=== PATIENT | male | born 1980 ===

== ENCOUNTER 2021-03-19 02:41 | Inpatient (IN) ==
[2021-03-19 03:29] LABS: Basophils % 0.8 %; Hematocrit 45.3 % (37.5-50.1); Immature Granulocytes % 2.1 % (0-4); Lymphocytes # 0.8 K/mcL (0.6-4.6); Lymphocytes % 20.3 %; Mean Corpuscular HGB Conc 33.1 g/dL (31.6-35.5); Mean Corpuscular Hemoglobin 29.4 pg (28.0-33.3); Mean Corpuscular Volume 88.6 fL (83.0-100.0); Mean Platelet Volume 10.9 fL (9.4-12.4); Monocytes # 0.3 K/mcL (0.0-1.3); Monocytes % 6.4 %; Neutrophils # 2.7 K/mcL (1.6-8.9); Platelet Count 155 K/mcL (140-400); Red Blood Count 5.11 M/mcL (4.19-5.50); Red Cell Distribution Width 12.2 % (11.5-14.5); Segmented Neutrophils % 70.4 %; White Blood Count 3.9 K/mcL (4.3-11.1)
[2021-03-19 03:37] LABS: INR 1.2; Prothrombin Time 13.6 Seconds (9.4-12.1)
[2021-03-19 03:39] LABS: Activated Partial Thrombo Time 30.2 Seconds (26.0-36.0)
[2021-03-19 03:47] LABS: BUN/Creatinine Ratio 11 (6-26); Blood Urea Nitrogen 8 mg/dL (6-20); Calcium 8.8 mg/dL (8.6-10.3); Carbon Dioxide 24 mEq/L (23-29); Chloride 92 mEq/L (98-107); Glucose 291 mg/dL (70-105); Osmolality,Calculated 275 (280-300); Sodium 128 mEq/L (136-145); Troponin I < 0.03 ng/mL (< 0.04); eGFR For African Americans > 60 (> 60); eGFR For Non-African Americans > 60 (> 60)
[2021-03-19] MEDS ORDERED: Isovue-370 500 ML BOTTLE IVP ONE (03:51)
[2021-03-19 04:00] LABS: Influenza A PCR Negative (Negative); Influenza B PCR Negative (Negative); Resp. Syncytial Virus PCR Negative (Negative)
[2021-03-19 04:09] LABS: SARS-CoV-2 by PCR (In House) Positive (Negative)
[2021-03-19] MEDS ORDERED: *HR* Promethazine 25 MG/ML VIAL IM PRN (04:59)
[2021-03-19] MEDS ORDERED: Naloxone 0.4 MG/ML INJ IVP PRN (04:59)
[2021-03-19] MEDS ORDERED: Melatonin 3 MG TABLET PO PRN (04:59)
[2021-03-19] MEDS ORDERED: *HR* OxyCODONE Immed Rel 5 MG TABLET PO PRN (04:59)
[2021-03-19] MEDS ORDERED: Acetaminophen 325 MG TABLET PO PRN (04:59)
[2021-03-19] MEDS ORDERED: Ondansetron 4 MG/2 ML VIAL IVP PRN (04:59)
[2021-03-19] MEDS ORDERED: *HR* Dextrose 50 % in Water (Syg) 50 ML SYRINGE IVP PRN (05:02)
[2021-03-19] MEDS ORDERED: Dextrose Gel 15 GM/37.5 ML TUBE PO PRN ×2 (05:02)
[2021-03-19] MEDS ORDERED: D5% in Water 1,000 ML IVC PRN (05:02)
[2021-03-19 05:55] LABS: Albumin/Globulin Ratio 1.1 (1.1-2.2); Bilirubin,Direct 0.1 mg/dL (0.0-0.2); Bilirubin,Indirect 0.3 mg/dL (0.0-1.0); Bilirubin,Total 0.4 mg/dL (0.3-1.0); Globulin 2.8 g/dL (2.4-3.5); Total Protein 5.8 g/dL (6.4-8.9)
[2021-03-19] MEDS ORDERED: Insulin LISPRO 300 UNITS/3 ML VIAL SUBQ SCH ×2 (06:00→11:30)
[2021-03-19] MEDS: *HR* Enoxaparin 40 MG/0.4 ML SYRINGE SQ SCH (08:34)
[2021-03-19] MEDS: cefTRIAXone 1,000 MG in 0.9 % Sodium Chloride Mini Bag 100 ML IVP SCH (09:40)
[2021-03-19] MEDS: Azithromycin 500 MG in 0.9 % Sodium Chloride 250 ML IVPB SCH (10:10)
[2021-03-19] MEDS ORDERED: Benzonatate 100 MG CAPSULE PO PRN (10:42)
[2021-03-19] MEDS: Insulin LISPRO 300 UNITS/3 ML VIAL SUBQ SCH ×3 (11:28→21:28)
[2021-03-19] MEDS ORDERED: Insulin DETEMIR 100 UNIT/ML X5UNITS SUBQ SCH (21:00)
[2021-03-19] MEDS: *HR* HYDROcodone/Acet 5/325 mg TABLET PO PRN (21:33)
[2021-03-20 03:10] LABS: Basophils % 0.8 %; Hematocrit 46.3 % (37.5-50.1); Hemoglobin 15.4 g/dL (12.9-16.9); Lymphocytes # 0.9 K/mcL (0.6-4.6); Lymphocytes % 24.7 %; Mean Corpuscular HGB Conc 33.3 g/dL (31.6-35.5); Mean Corpuscular Hemoglobin 29.8 pg (28.0-33.3); Mean Corpuscular Volume 89.6 fL (83.0-100.0); Mean Platelet Volume 11.1 fL (9.4-12.4); Monocytes # 0.4 K/mcL (0.0-1.3); Monocytes % 9.9 %; Neutrophils # 2.3 K/mcL (1.6-8.9); Platelet Count 185 K/mcL (140-400); Red Blood Count 5.17 M/mcL (4.19-5.50); Red Cell Distribution Width 12.2 % (11.5-14.5); Segmented Neutrophils % 61.6 %; White Blood Count 3.7 K/mcL (4.3-11.1)
[2021-03-20 03:18] LABS: INR 1.1; Prothrombin Time 12.3 Seconds (9.4-12.1)
[2021-03-20 03:53] LABS: Alanine Aminotransferase 25 Units/L (7-52); Albumin 3.5 g/dL (3.5-5.7); Albumin/Globulin Ratio 1.1 (1.1-2.2); Alkaline Phosphatase 86 Units/L (34-104); Aspartate Amino Transferase 27 Units/L (13-39); BUN/Creatinine Ratio 23 (6-26); Bilirubin,Total 0.4 mg/dL (0.3-1.0); Blood Urea Nitrogen 15 mg/dL (6-20); Calcium 9.4 mg/dL (8.6-10.3); Carbon Dioxide 19 mEq/L (23-29); Chloride 101 mEq/L (98-107); Globulin 3.2 g/dL (2.4-3.5); Glucose 283 mg/dL (70-105); Magnesium 1.9 mg/dL (1.6-2.6); Osmolality,Calculated 285 (280-300); Sodium 132 mEq/L (136-145); Total Protein 6.7 g/dL (6.4-8.9); eGFR For African Americans > 60 (> 60); eGFR For Non-African Americans > 60 (> 60)
[2021-03-20] MEDS: *HR* Enoxaparin 40 MG/0.4 ML SYRINGE SQ SCH ×2 (06:02→17:37)
[2021-03-20] MEDS: Insulin LISPRO 300 UNITS/3 ML VIAL SUBQ SCH ×6 (07:48→20:50)
[2021-03-20] MEDS: Dexamethasone Sodium Phos/PF 10 MG/ML VIAL IVP SCH (07:49)
[2021-03-20] MEDS: Azithromycin 500 MG in 0.9 % Sodium Chloride 250 ML IVPB SCH (07:50)
[2021-03-20] MEDS: cefTRIAXone 1,000 MG in 0.9 % Sodium Chloride Mini Bag 100 ML IVP SCH (09:01)
[2021-03-20] MEDS: *HR* HYDROcodone/Acet 5/325 mg TABLET PO PRN (09:09)
[2021-03-20] MEDS ORDERED: Insulin DETEMIR 100 UNIT/ML X5UNITS SUBQ SCH (21:00)
[2021-03-21] MEDS: *HR* Enoxaparin 40 MG/0.4 ML SYRINGE SQ SCH ×2 (06:06→17:00)
[2021-03-21 06:41] LABS: Hematocrit 47.4 % (37.5-50.1); Hemoglobin 15.3 g/dL (12.9-16.9); Mean Corpuscular HGB Conc 32.3 g/dL (31.6-35.5); Mean Corpuscular Hemoglobin 28.9 pg (28.0-33.3); Mean Corpuscular Volume 89.6 fL (83.0-100.0); Mean Platelet Volume 10.8 fL (9.4-12.4); Platelet Count 202 K/mcL (140-400); Red Blood Count 5.29 M/mcL (4.19-5.50); Red Cell Distribution Width 12.2 % (11.5-14.5); White Blood Count 4.5 K/mcL (4.3-11.1)
[2021-03-21 07:01] LABS: BUN/Creatinine Ratio 17 (6-26); Blood Urea Nitrogen 12 mg/dL (6-20); Calcium 9.8 mg/dL (8.6-10.3); Carbon Dioxide 28 mEq/L (23-29); Chloride 98 mEq/L (98-107); Glucose 271 mg/dL (70-105); Lactate Dehydrogenase 365 Units/L (140-271); Osmolality,Calculated 291 (280-300); Potassium 3.8 mEq/L (3.5-5.1); Sodium 136 mEq/L (136-145); eGFR For African Americans > 60 (> 60); eGFR For Non-African Americans > 60 (> 60)
[2021-03-21 07:15] LABS: Ferritin 620 ng/mL (20-250)
[2021-03-21] MEDS: Insulin LISPRO 300 UNITS/3 ML VIAL SUBQ SCH ×7 (08:14→22:30)
[2021-03-21] MEDS: Dexamethasone Sodium Phos/PF 10 MG/ML VIAL IVP SCH (09:27)
[2021-03-21] MEDS: Azithromycin 500 MG in 0.9 % Sodium Chloride 250 ML IVPB SCH (09:27)
[2021-03-21] MEDS ORDERED: Insulin DETEMIR 100 UNIT/ML X5UNITS SUBQ SCH (21:00)
[2021-03-22 05:23] LABS: Hematocrit 45.8 % (37.5-50.1); Hemoglobin 15.1 g/dL (12.9-16.9); Mean Corpuscular Hemoglobin 29.6 pg (28.0-33.3); Mean Corpuscular Volume 89.8 fL (83.0-100.0); Mean Platelet Volume 10.5 fL (9.4-12.4); Platelet Count 235 K/mcL (140-400); Red Cell Distribution Width 12.1 % (11.5-14.5); White Blood Count 4.6 K/mcL (4.3-11.1)
[2021-03-22 05:44] LABS: BUN/Creatinine Ratio 17 (6-26); Blood Urea Nitrogen 12 mg/dL (6-20); C-Reactive Protein 17 mg/L (Less than 10); Calcium 9.5 mg/dL (8.6-10.3); Carbon Dioxide 29 mEq/L (23-29); Chloride 101 mEq/L (98-107); Glucose 248 mg/dL (70-105); Lactate Dehydrogenase 298 Units/L (140-271); Osmolality,Calculated 288 (280-300); Potassium 3.5 mEq/L (3.5-5.1); Sodium 135 mEq/L (136-145); eGFR For African Americans > 60 (> 60); eGFR For Non-African Americans > 60 (> 60)
[2021-03-22] MEDS: *HR* Enoxaparin 40 MG/0.4 ML SYRINGE SQ SCH (05:44)
[2021-03-22 06:01] LABS: Ferritin 642 ng/mL (20-250)
[2021-03-22 06:56] VITALS: TEMP 97.2
[2021-03-22 07:21] LABS: Enterococcus by PCR Not Detected (Not Detect); Staphylococcus aureus by PCR Not Detected (Not Detect); Streptococcus agalactiae(B)PCR Not Detected (Not Detect); Streptococcus by PCR Not Detected (Not Detect)
[2021-03-22 07:22] LABS: Acinetobacter baumannii by PCR Not Detected (Not Detect); Candida albicans by PCR Not Detected (Not Detect); Candida glabrata by PCR Not Detected (Not Detect); Candida krusei by PCR Not Detected (Not Detect); Candida parapsilosis by PCR Not Detected (Not Detect); Candida tropicalis by PCR Not Detected (Not Detect); Enterobacter cloacae Cmplx PCR Not Detected (Not Detect); Enterobacteriaceae by PCR Not Detected (Not Detect); Escherichia coli by PCR Not Detected (Not Detect); Klebsiella oxytoca by PCR Not Detected (Not Detect); Klebsiella pneumoniae by PCR Not Detected (Not Detect); Proteus by PCR Not Detected (Not Detect); Pseudomonas aeruginosa by PCR Not Detected (Not Detect); Serratia marcescens by PCR Not Detected (Not Detect); Staphylococcus by PCR DETECTED (Not Detect); Streptococcus pneumoniae PCR Not Detected (Not Detect); Streptococcus pyogenes (A) PCR Not Detected (Not Detect); mecA Methicillin-Resist Gene DETECTED (Not Detect)
[2021-03-22] MEDS: Insulin LISPRO 300 UNITS/3 ML VIAL SUBQ SCH ×4 (08:12→11:40)
[2021-03-22] MEDS: Dexamethasone Sodium Phos/PF 10 MG/ML VIAL IVP SCH (08:12)
[2021-03-22 11:30] VITALS: BP 152/92; PULSE 90
[2021-03-22 15:58] VITALS: O2SAT 93
== END 2021-03-22 18:05 | disposition home health service (06) | DRG 720 ==
LOC: EMEROOARM 02:41 → SUATTDRO 05:07 → 2NENU 05:07
PROVIDERS: ADMIT Internal Medicine; ATTEND Student in an Organized Health Care Education/Training Program